=== PATIENT | female | born 1965 | race African-American/Black ===

== ENCOUNTER 2020-05-12 17:30 | Inpatient (IN) | payer MEDICARE, MEDICAID ==
[~2020-05-12] VITALS: Ht 165.1 cm; Wt 55.3 kg
[2020-05-12] MEDS ORDERED: PIPERACILLIN/TAZ 3.375G PREMIX 50 ML IV ONE (18:15)
[2020-05-12] MEDS ORDERED: SODIUM CHLORIDE 0.9% 1,000 ML IV ONE (18:15)
[2020-05-12] MEDS ORDERED: DEXTROSE 50% WATER 50ML SYRINGE IV ONE ×2 (18:15)
[2020-05-12] MEDS ORDERED: VANCOMYCIN 1 G PREMIX 200 ML IV ONE (18:15)
[2020-05-12 18:26] LABS: BASOPHILS % 1.1 % (0.0-2.0); EOSINOPHILS % 0.3 % (0.0-5.0); HEMOGLOBIN. 8.8 g/dL (12.0-16.0); LYMPHOCYTES % 11.2 % (20.0-50.0); MEAN CORPUSCULAR HEMOGLOBIN 28.1 pg (28.0-32.0); MEAN CORPUSCULAR VOLUME 88.9 fL (81.0-99.0); MEAN PLATELET VOLUME 7.8 fl (7.4-10.4); MONOCYTES % 13.5 % (2.0-8.0); NEUTROPHILS % 73.9 % (40.0-76.0); PLATELET 490 x1000/uL (130-400); RED BLOOD CELL COUNT 3.15 mill/uL (4.2-5.4)
[2020-05-12 18:32] LABS: CHLORIDE 100 mEq/L (98-107)
[2020-05-12 18:33] LABS: INR 2.6
[2020-05-12 18:35] LABS: ETHANOL BLOOD < 10 mg/dL
[2020-05-12] MEDS ORDERED: DILTIAZEM HCL 5MG/ML 5ML VIAL IV ONE ×2 (19:30→20:00)
[2020-05-12] MEDS ORDERED: CLONIDINE 0.1MG TABLET PO PRN (20:00)
[2020-05-12] MEDS ORDERED: ACETAMINOPHEN 325MG TABLET PO PRN (20:00)
[2020-05-12] MEDS ORDERED: MAGNESIUM/ALUMINUM HYDROXIDE/SIMETHICONE 30ML UDC PO PRN (20:00)
[2020-05-12] MEDS ORDERED: ONDANSETRON HCL 4MG/2ML INJ IV PRN (20:00)
[2020-05-12] MEDS ORDERED: DEXT 10% WATER 1,000 ML IV SCH ×2 (20:00→23:00)
[2020-05-12] MEDS ORDERED: PIPERACILLIN/TAZ 3.375G PREMIX 50 ML IV SCH (20:00)
[2020-05-12 20:41] LABS: BG BASE EXCESS -7.3 mmol/L (-2.0-2.0); BG CARBOXYHEMOGLOBIN 0.3 % (0.5-1.5); BG DEOXYHEMOGLOBIN 0.3 % (0.0-5.0); BG FRACTION INSPIRED OXYGEN 100; BG HCO3 ACT 13.6 mmol/L (22.0-26.0); BG METHEMOGLOBIN 0.3 % (0.0-1.5); BG OXYGEN SATURATION 99.7 % (92.0-98.5); BG OXYHEMOGLOBIN 99.1 % (94.0-97.0); BG PCO2 16.9 mmHg (35.0-45.0); BG PH 7.523 (7.350-7.450); BG PO2 493.1 mmHg (75.0-100.0); BG SAMPLE SITE RIGHT FEMORAL; BG TOTAL HEMOGLOBIN 10.2 g/dL (12.0-18.0); BG VENT MODE MASK - NRB
[2020-05-13] VITALS (26 sets, daily range): BP systolic 56–119; BP diastolic 32–77
[2020-05-13 00:09] LABS: CREATINE KINASE MB FRACTION 3.2 ng/mL (0.5-3.6)
[2020-05-13] MEDS: PIPERACILLIN/TAZOBACTAM 2.25 G in DEXTROSE 5% WATER 50 ML IV SCH ×2 (03:01→10:47)
[2020-05-13] MEDS ORDERED: LORAZEPAM 2MG/ML CPJ IV PRN (03:45)
[2020-05-13 06:22] LABS: HEMATOCRIT. 31.2 % (36.0-48.0); MEAN CORPUSCULAR VOLUME 90.7 fL (81.0-99.0); MEAN PLATELET VOLUME 8.6 fl (7.4-10.4); PLATELET 421 x1000/uL (130-400); RED BLOOD CELL COUNT 3.44 mill/uL (4.2-5.4); RED CELL DISTRIBUTION WIDTH 17.2 % (11.6-14.6)
[2020-05-13 06:29] LABS: CHLORIDE 100 mEq/L (98-107)
[2020-05-13 06:41] LABS: CREATINE KINASE 471 IU/L (26-192)
[2020-05-13 06:42] LABS: T4 FREE 1.24 ng/dL (0.76-1.46)
[2020-05-13 06:47] LABS: CREATINE KINASE MB FRACTION 7.6 ng/mL (0.5-3.6)
[2020-05-13] MEDS ORDERED: SODIUM CHLORIDE 0.9% 10ML VIAL ONE (07:32)
[2020-05-13] MEDS ORDERED: ETOMIDATE 2MG/ML 10ML VIAL IV ONE (07:32)
[2020-05-13] MEDS ORDERED: VECURONIUM BROMIDE 10 MG/VIAL IV ONE (07:32)
[2020-05-13] MEDS ORDERED: WARF1POW MC (08:11)
[2020-05-13] MEDS ORDERED: MYCO180T3 MT (08:11)
[2020-05-13] MEDS ORDERED: METO-396 MT (08:11)
[2020-05-13] MEDS ORDERED: CINA30 MT (08:11)
[2020-05-13] MEDS ORDERED: SEVE800T8 MT (08:11)
[2020-05-13] MEDS ORDERED: PRED1TAB3 MT (08:11)
[2020-05-13] MEDS ORDERED: LOSA25TA26 MT (08:11)
[2020-05-13] MEDS ORDERED: ONDA4TAB5 MT (08:11)
[2020-05-13] MEDS ORDERED: PANT20TA17 MT (08:11)
[2020-05-13] MEDS ORDERED: CEFE1VIA7 IJ (08:11)
[2020-05-13] MEDS ORDERED: DAPT350V IV (08:11)
[2020-05-13] MEDS ORDERED: OXYC-662 MT (08:11)
[2020-05-13] MEDS ORDERED: DEXTROSE 50% WATER 50ML SYRINGE IV PRN (08:30)
[2020-05-13] MEDS ORDERED: PHENYLEPHRINE 100 MG in DEXT 5% WATER 240 ML IV PRN (08:30)
[2020-05-13 09:46] LABS: BG CARBOXYHEMOGLOBIN 0.3 % (0.5-1.5); BG DEOXYHEMOGLOBIN 1.1 % (0.0-5.0); BG FRACTION INSPIRED OXYGEN 36; BG HCO3 ACT 12.9 mmol/L (22.0-26.0); BG METHEMOGLOBIN 0.3 % (0.0-1.5); BG OXYGEN SATURATION 98.9 % (92.0-98.5); BG OXYHEMOGLOBIN 98.3 % (94.0-97.0); BG PH 7.499 (7.350-7.450); BG PO2 136.2 mmHg (75.0-100.0); BG SAMPLE SITE RIGHT BRACHIAL; BG TOTAL HEMOGLOBIN 7.5 g/dL (12.0-18.0); BG VENT MODE NASAL CANNULA
[2020-05-13] MEDS ORDERED: CITRIC ACID/SODIUM CITRATE SOLN 30ML UDC PO SCH (10:15)
[2020-05-13] MEDS: SODIUM BICARBONATE 8.4% 1 MEQ/ML 50ML SYR IV NR ×2 (10:26→10:37)
[2020-05-13] MEDS ORDERED: FENTANYL CITRATE/PF 2,500 MCG in SODIUM CHLORIDE 0.9% 200 ML IV PRN (11:15)
[2020-05-13] MEDS ORDERED: PROPOFOL 10MG/ML 100ML 100 ML IV PRN (11:15)
[2020-05-13 12:31] LABS: BG CARBOXYHEMOGLOBIN 0.3 % (0.5-1.5); BG DEOXYHEMOGLOBIN 6.4 % (0.0-5.0); BG FRACTION INSPIRED OXYGEN 50; BG HCO3 ACT 18.2 mmol/L (22.0-26.0); BG METHEMOGLOBIN 0.2 % (0.0-1.5); BG OXYGEN SATURATION 93.6 % (92.0-98.5); BG OXYHEMOGLOBIN 93.1 % (94.0-97.0); BG PCO2 27.6 mmHg (35.0-45.0); BG PH 7.436 (7.350-7.450); BG PO2 66.6 mmHg (75.0-100.0); BG SAMPLE SITE RIGHT BRACHIAL; BG TOTAL HEMOGLOBIN 10.4 g/dL (12.0-18.0); BG VENT MODE VENT - AC
[2020-05-13] MEDS ORDERED: VASOPRESSIN 20 UNIT in SODIUM CHLORIDE 0.9% 99 ML IV PRN (13:45)
[2020-05-13] MEDS ORDERED: MORPHINE SULFATE 250 MG in DEXT 5% WATER 240 ML IV PRN (15:45)
[2020-05-13] MEDS ORDERED: METRONIDAZOLE 500 MG PREMIX 100 ML IV SCH (16:00)
[2020-05-13] MEDS ORDERED: SODIUM BICARBONATE 100 MEQ in DEXT 5%/0.45% NACL 1000ML 1,000 ML IV SCH (17:00)
[2020-05-13 21:54] LABS: PLATELET ESTIMATE INCREASED
[2020-05-14] MEDS ORDERED: OMEPRAZOLE 20MG CAPSULE EXTENDED RELEASE PO SCH (07:50)
== END 2020-05-13 16:54 | DRG 917 ==
LOC: ER 17:30 → 5EST 19:36 → EDBEDREQSVC 20:26 → ENRESERV 20:56 → CVICU 05-13 08:25
PROVIDERS: ADMIT Hospitalist; ATTEND Hospitalist
PROC: 5A1935Z Respiratory Ventilation, Less than 24 Consecutive Hours (ICD-10-PCS; principal; 2020-05-13)
PROC: 0BH17EZ Insertion of Endotracheal Airway into Trachea, Via Natural or Artificial Opening (ICD-10-PCS; 2020-05-13)
DX: T40.601A Poisoning by unspecified narcotics, accidental (unintentional), initial encounter (principal); A41.9 Sepsis, unspecified organism; E43 Unspecified severe protein-calorie malnutrition; G92 Toxic encephalopathy; I50.33 Acute on chronic diastolic (congestive) heart failure; J96.01 Acute respiratory failure with hypoxia; N18.6 End stage renal disease; R65.21 Severe sepsis with septic shock; J69.0 Pneumonitis due to inhalation of food and vomit; D68.9 Coagulation defect, unspecified; E87.1 Hypo-osmolality and hyponatremia; E87.4 Mixed disorder of acid-base balance; I13.2 Hypertensive heart and chronic kidney disease with heart failure and with stage 5 chronic kidney disease, or end stage renal disease; N39.0 Urinary tract infection, site not specified; D63.1 Anemia in chronic kidney disease; E11.649 Type 2 diabetes mellitus with hypoglycemia without coma; E11.51 Type 2 diabetes mellitus with diabetic peripheral angiopathy without gangrene; E11.22 Type 2 diabetes mellitus with diabetic chronic kidney disease; I48.91 Unspecified atrial fibrillation; M19.079 Primary osteoarthritis, unspecified ankle and foot; Z66 Do not resuscitate; Z99.2 Dependence on renal dialysis; Y92.89 Other specified places as the place of occurrence of the external cause; Z68.20 Body mass index [BMI] 20.0-20.9, adult; T81.89XA Other complications of procedures, not elsewhere classified, initial encounter; Y83.8 Other surgical procedures as the cause of abnormal reaction of the patient, or of later complication, without mention of misadventure at the time of the procedure; M32.9 Systemic lupus erythematosus, unspecified; R74.01 Elevation of levels of liver transaminase levels; R00.0 Tachycardia, unspecified; S81.802A Unspecified open wound, left lower leg, initial encounter; S81.801A Unspecified open wound, right lower leg, initial encounter
CPT/HCPCS: 36415; 36600; 71045; 73630; 80053; 80202; 80307; 80320; 80329; 82375; 82550; 82553; 82805; 82962; 83605; 83880; 84145; 84439; 84443; 84484; 85025; 93005; 93923; 99291; J2060; J2274; J2370; J2543; J3370; J3490; J7030; J7050; J7060; G0480